=== PATIENT | female | born 2000 | race African-American/Black ===

== ENCOUNTER → 2024-04-22 17:22 | Outpatient (BNV) | payer OTHER, SELFPAY | PROVIDERS: Emergency Provider Emergency Medicine; Visit Provider Internal Medicine | DX: R55 Syncope and collapse (principal) | CPT/HCPCS: 93010 ==

== ENCOUNTER → 2024-04-22 17:22 | Outpatient (BNV) | payer OTHER, SELFPAY | PROVIDERS: Visit Provider Radiology Diagnostic Radiology | DX: R55 Syncope and collapse (principal); S09.90XA Unspecified injury of head, initial encounter | CPT/HCPCS: 70450; 72125 ==

== ENCOUNTER 2024-05-02 08:18 | Outpatient (AMB) | payer OTHER, SELFPAY ==
[2024-05-02 08:20] VITALS: BP 113/57; PULSE 89; BMI 34.1
--- NOTE | 2024-05-02 08:20 | MHC.OFFVIS ---
Vital Signs 05/02/24 08:20 05/02/24 08:31 05/02/24 08:32 Height 5 ft 2 in Weight 186 lb 8.177 oz BMI 34.1 BP 113/57 L 115/65 114/72 Blood Pressure Location Lt brachial Lt brachial Lt brachial Position Sitting Supine Standing Pulse 89 72 89 Pulse Source Monitor Monitor Intake Visit Reasons: STUDENT SUPPORT ADVISOR/ [facility] ED fu/ syncope/elev troponin Pulp Plant Supervisor Required: No Accompanied by: Self / Same As Patient Allergies No Known Allergies Allergy (Verified 04/22/24 17:21) Medication List - Last Reconciled 05/02/24 by SANTI Albert No Known Home Meds HPI HPI STUDENT SUPPORT ADVISOR/ [facility] ED fu/ syncope/elev troponin: Details: Demi is a 23-year-old female with no cardiac history who recently presented to the [facility] ER following a syncopal event. Her ER evaluation showed no significant abnormalities. She was thought to have vasovagal syncope. She was referred to Cardiology in follow-up. Today she presents for cardiology consultation. She reports that on the day of her syncope she had been watching TV with her friends. She describes having some nausea earlier in the day and then again while sitting watching TV. She then became hot and got up to get a drink. When standing at the refrigerator, she noted that it was very heavy. She said her ears were ringing and vision blurred. She then had a brief loss of consciousness as described as being approximately 10 seconds. She had no witnessed seizure activity or incontinence reported. She said upon awakening she was very briefly disoriented then within seconds she was able to get up. She was brought to the ER for evaluation. She said many years ago she had a similar episode of but did not have full syncope. Her mother was present at that time and had her lay down. She does not have issues with chest discomfort, heart palpitations or shortness of breath. She has never been diagnosed with any heart issues. She describes herself as healthy and does not take any medications. She reports good activity tolerance but does not engage in any routine exercise. She occasionally smokes marijuana but has never smoked cigarettes. She does not drink alcohol. Her test was negative. Her grandfather has a history of heart failure otherwise no known family history of heart disease. [facility] Family History Maternal Grandfather Heart failure Social History Alcohol intake: current Alcohol intake frequency: holidays/special occasions only Patient Tobacco Use Status: Never used Tobacco Review of Systems Const All systems reviewed & are unremarkable except as noted in HPI and below Denies chills, Denies fatigue, Denies fever(s), Denies frequent falls, Denies weakness, Denies weight gain and Denies weight loss ENT Denies dizziness Card Denies chest pain, Denies leg edema, Denies lightheadedness, Denies palpitations, Denies dyspnea, Denies dyspnea on exertion and Denies orthopnea Resp Denies cough, Denies dyspnea and Denies dyspnea on exertion GI Denies bloating and Denies change in bowel habits Musc Denies muscle weakness, Denies numbness and Denies tingling Neuro Denies dizziness, Denies frequent falls, Denies numbness, Denies tingling and Denies weakness Endo Denies fatigue and Denies palpitations Physical Exam Vital Signs: Last Vital Signs Pulse 89 05/02/24 08:32 BP 114/72 05/02/24 08:32 BMI result Body Mass Index 34.1 Const General: cooperative, healthy appearing, comfortable and no acute distress Orientation/consciousness: patient oriented x3 Neck Neck: Yes normal visual inspection Resp Effort & Inspection: normal respiratory effort Auscultation: clear to auscultation bilaterally, no crackles, no rales, no rhonchi and no wheezes Cardio Rate: regular rate Rhythm: regular rhythm Heart sounds: S1 normal heart sound present, S2 normal heart sound present, no murmurs and no rubs Peripheral pulses: Peripheral pulses 2+ throughout Neuro General: patient oriented x3 Extrem General: Yes normal to inspection, No no pedal edema and No calf tenderness Psych Appearance: grossly normal Mental Status: mental status grossly normal Speech and movement: Normal speech and movement present Assessment & Plan Assessment & Plan (1) Syncope: Code(s): R55 - Syncope and collapse Category: Medical Plan: Syncopal event as described above. Episode was preceded by nausea, blurred vision, feeling hot and weak. She had brief loss of consciousness. No witnessed seizure activity or incontinence. ER evaluation for this event showed no anemia, normal electrolytes, normal D-dimer, test negative. Her EKG showed sinus rhythm, rate 60, normal MI, QRS and QTC intervals. EKG reviewed and no evidence of pre-excitation. Her troponins were slightly elevated, flat at 46.4 and 48.2. Her description of the event sounds most like vasovagal syncope. Unknown trigger to her episode. Will order a tilt-table test for further evaluation. Will order an echocardiogram to assess for any structural heart disease. Her mildly elevated troponins will check an exercise stress test to assess for ischemia and for activity induced arrhythmia. May order a Holter at follow-up visit though her episode does not seem to be related to arrhythmia. Instructed to maintain good hydration and recognize symptoms if they were to occur again. If she feels it coming on she is instructed to lay down quickly and elevate legs if able. No driving if she feels symptomatic. Cardiology follow-up in 6-8 weeks, sooner if needed. Plan Time spent on chart review, documentation, interview and assessment Orders: Orders CA echo transthoracic complete Today R55 - Syncope and collapse ECG Tilt Table Test Today R55 - Syncope and collapse CA stress test Today R55 - Syncope and collapse Coding Level of Care Code New Pt Level 4 (10679) Complex EM visit Add On G2211 Diagnoses Syncope R55 Time Spent (min) 36
[2024-05-02 08:31] VITALS: BP 115/65; PULSE 72
[2024-05-02 08:32] VITALS: BP 114/72; PULSE 89
== END 2024-05-02 09:04 | disposition home or self-care (01) ==
PROVIDERS: Visit Provider Nurse Practitioner Family
DX: R55 Syncope and collapse (principal)
CPT/HCPCS: 99204

== ENCOUNTER → 2024-05-02 08:18 | Outpatient (BNVA) | payer OTHER, SELFPAY | PROVIDERS: Visit Provider Nurse Practitioner Family ==

== ENCOUNTER → 2024-05-30 07:56 | Outpatient (REF) | payer OTHER, SELFPAY ==
--- OUTSIDE RECORDS SUMMARY | 2024-05-30 07:58 | XMS_ITS | Clinical Summary ---
Author Organization [facility] Address [address] [place] [address] Phone Care Team Providers Care Fruit Coordinator Name Role Phone Unavailable Primary Care Provider Unavailabl e Social History Tobacco Use Types Packs/Day Years Used Date Smoking Tobacco: Never Assessed Comments Unknown Sex and Gender Information Value Date Recorded Sex Assigned at Female 05/29/2024 3:01 PM EST Legal Sex Female 8:53 AM EST Gender Identity Female 05/29/2024 3:01 PM EST Sexual Orientation Not on file Plan of Treatment Upcoming Encounters Date Type Department Care Team (Late st Contact Info) Description 06/03/2024 1:45 PM EST Appointment [facility] Xray [address] [place] [address] Health Maintenance Due Date Last Done Comments Gonorrhea/Chlamydia Screening 2002 HPV Vaccines (1 - 3-dose series) 2017 Meningococcal B Vacine (1 of 2 - Standard) 2018 DTaP,Tdap,and Td Vaccines (1 - Tdap) 2021 Hepatitis B Vaccines (1 of 3 - 19+ 3-dose series) 2021 Cervical Cancer Screening: P ap Smear 09/05/2023 COVID-19 Vaccine (1 - 2023-2 5 season) 2023 Influenza Vaccine (#1) 2023 Annual Well Child Visit (3-2 1 years old) 05/02/2024 Depression Screening 05/02/2024 HIV Screening 05/02/2024 Hepatitis C Screening 05/02/2024 Social Influencers of Health Screening 05/02/2024 HIB Vaccines Aged Out No longer eligi ble based on patient's age to complete this topic Hepatitis A Vaccines Aged Out No long er eligible based on patient's age to complete this topic IPV Vaccines Aged Out No longer eligi ble based on patient's age to complete this topic MMR Vaccines Aged Out No longer eligi ble based on patient's age to complete this topic Meningococcal ACWY Vaccine Aged Out N o longer eligible based on patient's age to complete this topic Pneumococcal Vaccine: Pediat rics (0 to 5 Years) and At-Risk Patients (6 to 64 Years) Aged Out No longer eligible b ased on patient's age to complete this topic RSV Immunization Patients Un gilda 20 months Aged Out No longer eligible b ased on patient's age to complete this topic Varicella Vaccines Aged Out No longer eligible based on patient's age to complete this topic Insurance [facility]
--- NOTE | 2024-05-30 07:59 | CA_ITS ---
Acquisition Time: 2024-05-30 09:17:39 Total Exercise Time: 00:09:07 Test Indications: ELEVATED TROP,Dizzy Spells Medications: NONE Protocol: NARENDRA Max HR: 179 BPM 89% of Pred: 199 BPM Max BP: 156/74 mmHG Max Work Load: 10.2 METS Exercise Stress Test with exercise 9 mins 7 secs of Narendra Protocol, achieving 89% MPHR, with reports of mild SOB, no chets discomfort or dizziness, without any arrythmias, with normotensive response to exercise. Without EKG changes meeting criteria for ischemia. In recovery, breathing returned to baseline. Test reviewed with Dr. Sims. PS: when going from sitting to standing, pt's HR andressa from 80s to 100s and then slowed down quickly once in standing position back into 80s. Referred By: Yumi Anguiano Electronically Signed By: Sandeep Orosco
--- NOTE | 2024-05-30 07:59 | CA_ITS ---
Transthoracic Echocardiogram Patient (Last, First, Middle): Demi James J Gender: Female Date of : 2000 Age: 23 Procedure Date: 05/30/2024 Procedure Type: Transthoracic Echocardiogram Location: OP Height: 157.48 cm Weight: 81.99 kg BSA: 1.83 m2 Heart Rate: bpm BP: 102 / 66 mmHg Director Of Conservation: TO Referring MD: Yumi Anguiano BREAKER MECHANICApollo Warehouseman: Mane Sims MD Symptoms: R55 - Syncope and collapse Study Quality: Adequate w contrast ECG Rhythm: Sinus Conclusions: - Normal study Findings Procedure Information Contrast agent, definity, is being given per protocol without apparent complications. Left Ventricle Normal left ventricular size, thickness, and systolic function. The visually estimated ejection fraction is between 60-65%. Spectral Doppler is indicative of a normal filling pattern. Right Ventricle Normal right ventricular cavity size and systolic function. Atria Both atria are normal in size. There is no evidence of interatrial shunt. Aortic Valve Normal aortic valve structure and function. There is no aortic valve stenosis. There is no aortic valve regurgitation. Mitral Valve Normal mitral valve structure and function. There is trace mitral valve regurgitation. There is no mitral valve stenosis. Pulmonic Valve The pulmonic valve is likely normal. Tricuspid Valve Normal tricuspid valve structure. Tricuspid regurgitation envelope is inadequate for calculation of right ventricular systolic pressure. Normal right atrial pressure. Great Vessels All visible segments of the aorta are normal in size. The pulmonary artery was not well visualized. Venous The inferior vena cava is normal in size and collapses greater than 50% with inspiration. Pericardium/Pleural There is no evidence of pericardial effusion. Prior Study Comparison No prior study available for comparison. Measurements 2D Linear Measurements IVSd: 0.95 0.6-0.9/0.6-1.0 cm LVIDd: 4.48 3.9-5.3/4.2-5.9 cm LVIDd Index: 2.45 2.4-3.2/2.2-3.1 cm/m2 LVIDs: 3.22 2.0-3.6 cm LVPWd: 0.76 0.7-1.1 cm LA Diam: 3.30 2.7-3.8/3.0-4.0 cm LAIDs Index: 1.80 1.5-2.3 cm/m2 LV Mass: 153.39 67-162/88-224 g LV Mass Index: 83.82 43-95/49-115 g/m2 LVOT Diam: 2.20 3.0+(-)1.3 cm 2D Systolic Function EF 4C: 55.00 >55% EF 2C: 64.60 >55% EF BiP: 60.40 >55% Mitral Valve MV Pk E: 0.72 MV PK A: 0.42 MV Decel Time: 180.00 E/A: 1.70 E'Lateral: 11.40 E'Medial: 7.72 E/E' Med: 9.30 E/E' Lat: 6.30 PHT: 53.00 MVA PHT: 4.15 Decel [place]: 4.01 Aortic Valve AoV Pk Cj: 1.16 AoV Mn Cj: 0.74 AoV VTI: 0.25 AoV Pk Grad: 5.00 Aov Mn Grad: 3.00 RAI Cont.VTI: 2.95 LVOT LVOT Pk Cj: 0.94 LVOT Mn Cj: 0.62 LVOT VTI: 0.19 LVOT Pk Grad: 4.00 LVOT Mn Grad: 2.00 LVOT Diam: 2.20 LVOT Area: 3.80 Diastolic Function MV Pk E: 0.72 MV Pk A: 0.42 E/A: 1.70 E'Medial: 7.72 E/E' Med: 9.30 E' Laterial: 11.40 E/E' Lat: 6.30 Right Ventricle TAPSE (mm): 22.60 TVS' Cj: 11.50 Tricuspid Valve RA Press: 3.00 Great Vessels Aorta Sinus of Valsalva: 3.00 2.0-3.5 cm Ao Asc: 2.70 2.1-3.4 cm Ao Arch: 2.30 Updated in Other Vendor System with Status of Final Mane Sims MD electronically signed on 05/31/2024 1:03:29 PM with status of Final
== END ==
LOC: HO.CARD 07:56
PROVIDERS: Visit Provider Nurse Practitioner Family
DX: R55 Syncope and collapse (principal)
CPT/HCPCS: 93017; 93306; Q9957

== ENCOUNTER → 2024-05-30 07:59 | Outpatient (BNV) | payer OTHER, SELFPAY | DX: R55 Syncope and collapse (principal) | CPT/HCPCS: 93320; 93325; 93350; 93352 ==

== ENCOUNTER 2024-06-12 09:28 | Outpatient (AMB) | payer OTHER, SELFPAY ==
--- NOTE | 2024-06-12 09:41 | MHC.OFFVIS ---
Vital Signs 06/12/24 09:42 Height 5 ft 2 in Weight 179 lb 14.355 oz BMI 32.9 BP 114/72 Blood Pressure Location Lt brachial Position Sitting Pulse 83 Pulse Source Pulse Oximeter Intake Visit Reasons: 6m follow up Solution Sales Senior Executive Required: No Allergies No Known Allergies Allergy (Verified 06/12/24 09:43) Medication List - Last Reconciled 06/12/24 by Yumi Anguiano, JIMENA-C No Known Home Meds HPI HPI 6m follow up: Details: Demi is a 23-year-old female with no cardiac history who recently presented to the [facility] ER following a syncopal event. Her ER evaluation showed no significant abnormalities. She was thought to have vasovagal syncope and was referred to Cardiology. On last visit a tilt-table test, echocardiogram and ETT were ordered and she now presents for follow-up. Today she Reports she has been doing well since her last visit. She describes 1 episode where she became lightheaded in the shower. No syncope or falls. No heart palpitations, chest discomfort, shortness of breath. She reports good activity tolerance but does not engage in any routine exercise. She occasionally smokes marijuana but has never smoked cigarettes. She does not drink alcohol. Has been trying to maintain good hydration and increase salt in her diet. [facility] Family History Maternal Grandfather Heart failure Social History Alcohol intake: current Alcohol intake frequency: holidays/special occasions only Patient Tobacco Use Status: Never used Tobacco Review of Systems Const All systems reviewed & are unremarkable except as noted in HPI and below ENT Denies dizziness Card Denies chest pain, Denies chest pain at rest, Denies chest pain with activity, Denies rapid heart rate, Denies pedal edema, Denies edema, Denies leg edema, Denies lightheadedness, Denies palpitations, Denies dyspnea, Denies dyspnea on exertion and Denies orthopnea Resp Denies cough, Denies dyspnea and Denies dyspnea on exertion GI Denies hematochezia and Denies change in stool character Musc Denies abnormal gait, Denies limited range of motion, Denies muscle cramps, Denies muscle weakness, Denies numbness, Denies radiating pain into limb, Denies stiffness and Denies tingling Neuro Denies abnormal gait, Denies dizziness, Denies numbness and Denies tingling Endo Denies palpitations Physical Exam Vital Signs: Last Vital Signs Pulse 83 06/12/24 09:42 BP 114/72 06/12/24 09:42 BMI result Body Mass Index 32.9 Const General: cooperative, healthy appearing, comfortable and no acute distress Orientation/consciousness: patient oriented x3 Neck Neck: Yes normal visual inspection Resp Effort & Inspection: normal respiratory effort Auscultation: clear to auscultation bilaterally, no crackles, no rales, no rhonchi and no wheezes Cardio Rate: regular rate Rhythm: regular rhythm Heart sounds: S1 normal heart sound present, S2 normal heart sound present, no murmurs and no rubs Peripheral pulses: Peripheral pulses 2+ throughout Neuro General: patient oriented x3 Extrem General: Yes normal to inspection, No no pedal edema and No calf tenderness Psych Appearance: grossly normal Mental Status: mental status grossly normal Speech and movement: Normal speech and movement present Assessment & Plan Assessment & Plan (1) Vasovagal syncope: Code(s): R55 - Syncope and collapse Category: Medical Plan: Recent ER evaluation for syncopal event that was preceded by nausea, blurred vision, feeling hot and weak. ER evaluation without any significant findings. Her EKG showed sinus rhythm, rate 60, normal CT, QRS and QTC intervals. EKG reviewed and no evidence of pre-excitation. Her troponins were slightly elevated, flat at 46.4 and 48.2. Her Episode was most consistent vasovagal syncope. for evaluation she had an echocardiogram on 05/30/2024 which was normal. An exercise stress test on 05/30/2024 with good exercise tolerance, no arrhythmia or EKG changes of ischemia. Tilt-table test done 06/03/2024 was abnormal with findings consistent with neurocardiogenic physiology. Discussed test results with her. Reviewed vasovagal syncope. Instructed to maintain good hydration, recognize symptoms and sit or lay down if symptomatic. No driving if she feels symptomatic. educate herself further on this diagnosis. Cardiology follow-up in 1 year, sooner if needed. Plan Time spent on chart review, documentation, interview and assessment Coding Level of Care Code Est Pt Level 3 (71352) Complex EM visit Add On G2211 Diagnoses Vasovagal syncope R55 Time Spent (min) 24
[2024-06-12 09:42] VITALS: BP 114/72; PULSE 83; BMI 32.9
--- OUTSIDE RECORDS SUMMARY | 2024-06-12 10:43 | XMS_ITS | Encounter Summary ---
Author Organization [facility] Address [address] [place] [address] Care Team Providers Care Banquet Attendant Name Role Phone Shanti Goldsmith MD Primary Care Provide r Reason for Referral * Cardiac Stress Testing (Routine) - Pending Review Specialty Diagnoses / Procedures Referred By Contac t Referred To Contact Cardiology Diagnoses Syncope and collapse Procedures Tilt table Yumi Anguiano NP [facility] [address], [address] [place] [address] [facility] Referral ID Status Reason Start Date Expiration Date V isits Requested Visits Authorized [id number] Pending Review 05/02/2024 05/02/2025 1 1 Reason for Visit * Cardiac Stress Testing (Routine) - Pending Review Specialty Diagnoses / Procedures Referred By Contac t Referred To Contact Cardiology Diagnoses Syncope and collapse Procedures Tilt table Yumi Anguiano NP [facility] [address] [place] [address] [facility] Referral ID Status Reason Start Date Expiration Date V isits Requested Visits Authorized [id number] Pending Review 05/02/2024 05/02/2025 1 1 Encounter Details Date Type Department Care Team (Latest Contact Info) Description 06/03/2024 1:45 PM EST - 06/03/2024 11:59 PM EST Hospital Encounter [facility] Xray [address] [place] [id number] Syncope and collapse Discharge Disposition: Home or Self Care Social History Tobacco Use Types Packs/Day Years Used Date Smoking Tobacco: Never Assessed Comments Unknown Sex and Gender Information Value Date Recorded Sex Assigned at Female 05/29/2024 3:01 PM EST Legal Sex Female 8:53 AM EST Gender Identity Female 05/29/2024 3:01 PM EST Sexual Orientation Not on file documented as of this encounter Discharge Disposition Disposition Code Departure Means Destination Home or Self Care documented in this encounter Plan of Treatment Not on file documented as of this encounter Procedures Procedure Name Priority Date/Time Associated Diagnosis Comments TILT TABLE Routine 06/03/2024 2:17 PM EST Syncope and collapse documented in this encounter Results * Tilt table (06/03/2024 2:17 PM EST) Anatomical Region Laterality Modality Radiographic Ana ging Narrative 06/03/2024 2:49 PM EST Presyncope symptoms reproduced today. I have encouraged her to stay well hydrated and add salt to her diet Tilt Table The patient was brought to lab in fasting state. Patient lied supine for 5 minutes for equilibrium. Baseline ECG showed normal sinus rhythm. Baseline supine minimum BP: 100/46 mmHg Baseline supine minimum HR: 66 bpm Patient tilted to 70 degrees. Tilt maintained for 20 minutes. Minimum BP during tilt: 90/58 mmHg Maximum BP during tilt: 118/71 mmHg Minimum heart rate during tilt: 74 bpm Maximum heart rate during tilt: 91 bpm Rhythm during tilt: normal sinus rhythm There was a clear orthostatic response not noted. Patient experienced a physiologic HR increase with tilt. Symptoms seen on tilt include: light headedness. Syncope/presyncope symptoms were not reproduced. Nitroglycerin was given during the test. Minimum BP under nitroglycerin: 49/28 Maximum BP under nitroglycerin: 112/71 Minimum HR under nitroglycerin: 62 Maximum HR under nitroglycerin: 112 Symptoms seen after the nitroglycerin dose include: dizziness and nausea, hot. Premonitory symptoms were reproduced. Syncope/presyncope symptoms were reproduced. They lasted for 2 minutes. Patient experienced sudden onset of hypotension then bradycardia. Conclusion: Abnormal tilt test with findings consistant with neurocardiogenic physiology. Presenting in vasodepressor response. This response was provoked by nitroglycerin. us Yumi Anguiano NP [facility] Final Result documented in this encounter Visit Diagnoses Diagnosis Syncope and collapse documented in this encounter Care Teams Banquet Attendant Relationship Specialty Start Date End Date Shanti Goldsmith MD [address] [place] [address], [address] [place] [address] PCP - General 06/03/24 documented as of this encounter
--- OUTSIDE RECORDS SUMMARY | 2024-06-12 10:43 | XMS_ITS | Clinical Summary ---
Author Organization [facility] Address [address] [place] [address] Phone Care Team Providers Care Control Valve Technician Name Role Phone Shanti Goldsmith MD Primary Care Provide r Encounters Date Type Department Care Team Description 06/03/2024 1:45 PM EST - 06/03/2024 11:59 PM EST Hospital Encounter [facility] Xray [address] [place] [address] Syncope and collapse Discharge Disposition: Home or Self Care from Last 3 Months Social History Tobacco Use Types Packs/Day Years Used Date Smoking Tobacco: Never Assessed Comments Unknown Sex and Gender Information Value Date Recorded Sex Assigned at Female 05/29/2024 3:01 PM EST Legal Sex Female 8:53 AM EST Gender Identity Female 05/29/2024 3:01 PM EST Sexual Orientation Not on file Plan of Treatment Health Maintenance Due Date Last Done Comments Gonorrhea/Chlamydia Screening 2002 Meningococcal B Vacine (1 of 2 - Standard) 2018 Cervical Cancer Screening: Pap Smear 09/05/2023 COVID-19 Vaccine ( season) 2023 08/29/2021, 08/23/2020, 07/31/2020 Influenza Vaccine (#1) 2023 , 03/26/2020, 02/26/2018, Additional history exists DTaP,Tdap,and Td Vaccines (7 - Td or Tdap) 01/21/2024 01/20/2014, 09/07/2006, 12/15/2003, Additional history exists Annual Well Child Visit (3-21 years old) 05/02/2024 04/04/2022, 02/26/2018 Depression Screening 05/02/2024 HIV Screening 05/02/2024 Hepatitis C Screening 05/02/2024 Social Influencers of Health Screening 05/02/2024 Hepatitis B Vaccines Completed 06/11/2003, 2002, 2002 HIB Vaccines Completed 04/07/2004, 07/2002, 01/07/2003, Additional history exists MMR Vaccines Completed 09/07/2006, 03/08/2004 Varicella Vaccines Completed 09/07/2006, 0 09/07/2006, 12/15/2003 IPV Vaccines Completed 09/17/2007, 05/2003, 01/07/2003, Additional history exists Meningococcal ACWY Vaccine Aged Out 01/28/2015 N o longer eligible based on patient's age to complete this topic HPV Vaccines Completed 02/26/2018, 04/18, 11/10/2016 Pneumococcal Vaccine: Pediatrics (0 to 5 Years) and At-Risk Patients (6 to 64 Years) Completed 08/03/2023, 03/08/2004, 03/19/2003, Additional history exists Hepatitis A Vaccines Aged Out No long er eligible based on patient's age to complete this topic RSV Immunization Patients Under 20 months Aged Out No longer eligible based on patient's age to complete this topic Procedures Procedure Name Priority Date/Time Associated Diagnosis Comments TILT TABLE Routine 06/03/2024 2:17 PM EST Syncope and collapse from Last 3 Months Results * Tilt table (06/03/2024 2:17 PM [...] response. This response was provoked by nitroglycerin. Yumi Anguiano NP [facility]ED[facility] Final Result from Last 3 Mon[place] [id number] Stop Being Watched Care Teams Control Valve Technician Relationship Specialty Start Date End Date Shanti Goldsmith MD [address] [place] [address], [address] [place] [id number] PCP - General 06/03/24
== END 2024-06-12 10:13 | disposition home or self-care (01) ==
PROVIDERS: Visit Provider Nurse Practitioner Family
DX: R55 Syncope and collapse (principal)
CPT/HCPCS: 99213